=== PATIENT | female | born 1965 | race Caucasian/White ===

== ENCOUNTER 2020-09-18 21:40 | Emergency (ER) | payer OTHER ==
[~2020-09-18] VITALS: Ht 172.7 cm; Wt 55.4 kg
[2020-09-18 22:56] LABS: CLARITY,URINE SLIGHTLY CLOUDY (Clear); COLOR,URINE YELLOW (Yellow); GLUCOSE, URINE NEGATIVE (Neg); KETONES,URINE NEGATIVE (Neg); LEUKOCYTE ESTERASE ,URINE LARGE (Neg); NITRITES, URINE NEGATIVE (Neg); OCCULT BLOOD,URINE LARGE (Neg); PROTEIN,URINE NEGATIVE (Neg); UROBILINOGEN,URINE 0.2 E.U/dL (0.2-1.0)
[2020-09-18 23:02] LABS: UA COLLECTION TYPE CLN CATCH MIDSTREAM
[2020-09-18 23:03] LABS: BACTERIA,URINE FEW /HPF (Neg); SQUAMOUS EPITHELIAL CELL,UR FEW /LPF (FEW); WBC CLUMPS,URINE MODERATE /HPF (NEGATIVE); WBC,URINE 30-50 /HPF (0-4)
[2020-09-18] MEDS ORDERED: NITR100C6 PO (23:19)
[2020-09-18] MEDS ORDERED: PHEN-786 PO (23:19)
[2020-09-18] MEDS ORDERED: phenazopyridine 100mg tablet PO ONE (23:20)
[2020-09-18] MEDS ORDERED: nitrofuran/nitrofuran macrocrysal 100 MG capsule PO ONE (23:20)
[2020-09-18 23:28] VITALS: BP 134/91
== END 2020-09-18 23:29 | disposition home or self-care (01) ==
LOC: ER 21:40
DX: N30.90 Cystitis, unspecified without hematuria (principal); Z79.899 Other long term (current) drug therapy
CPT/HCPCS: 81001; 87077; 87088; 87186; 99283

== ENCOUNTER 2020-09-25 05:19 | Emergency (ER) | payer SELFPAY ==
[~2020-09-25] VITALS: Ht 172.7 cm; Wt 63.6 kg
[~2020-09-25 05:19] MED LIST: NITR100C6 PO; PHEN-786 PO
[2020-09-25] MEDS ORDERED: normal saline 1000ml 1,000 ML IVB ONE (05:30)
[2020-09-25 06:07] LABS: BASOPHILS # (AUTO) 0.1 X10'3 (0-0.2); EOSINOPHILS # (AUTO) 0.1 X10'3 (0-0.9); EOSINOPHILS % (AUTO) 2.6 % (0-6); HEMATOCRIT 40.5 % (35.0-45.0); LYMPHOCYTES # (AUTO) 1.7 X10'3 (1.1-4.8); MEAN CORPUSCULAR HEMOGLOBIN 30.1 PG (27.0-31.0); MEAN CORPUSCULAR HGB CONC 34.6 g/dL (33.0-36.5); MEAN PLATELET VOLUME 7.5 FL (7.4-10.4); MONOCYTES # (AUTO) 0.4 X10'3 (0-0.9); MONOCYTES % (AUTO) 6.9 % (2-12); NEUTROPHILS % (AUTO) 57.5 % (42-75); PLATELET COUNT 240 X10'3 (140-440); RED BLOOD COUNT 4.66 X10'6 (4.20-5.60); RED CELL DISTRIBUTION WIDTH 12.2 % (11.5-14.5); WHITE BLOOD COUNT 5.2 X10'3 (4.5-11.0)
[2020-09-25 06:09] LABS: CLARITY,URINE CLEAR (Clear); COLOR,URINE YELLOW (Yellow); GLUCOSE, URINE NEGATIVE (Neg); KETONES,URINE NEGATIVE (Neg); LEUKOCYTE ESTERASE ,URINE NEGATIVE (Neg); NITRITES, URINE NEGATIVE (Neg); OCCULT BLOOD,URINE NEGATIVE (Neg); PH,URINE 6.5 (4.8-8.0); PROTEIN,URINE NEGATIVE (Neg); UA COLLECTION TYPE CLN CATCH MIDSTREAM; UROBILINOGEN,URINE 0.2 E.U/dL (0.2-1.0)
[2020-09-25 06:13] LABS: URINE HCG NEGATIVE (NEG)
[2020-09-25 06:16] LABS: ALANINE AMINOTRANSFERASE 14 U/L (12-78); ALBUMIN/GLOBULIN RATIO 1.2 (1.1-1.5); ALKALINE PHOSPHATASE 70 IU/L (46-116); AMYLASE 58 U/L (25-115); ANION GAP 10 (8-16); ASPARTATE AMINO TRANSFERASE 14 U/L (10-37); BILIRUBIN,TOTAL 0.4 MG/DL (0.1-1.0); BLOOD UREA NITROGEN 9 MG/DL (7-18); BUN/CREATININE RATIO 11.1 (6.6-38.0); CALCIUM 9.2 MG/DL (8.5-10.1); CHLORIDE 106 MMOL/L (99-107); CREATININE 0.81 MG/DL (0.40-0.90); GLUCOSE 106 MG/DL (70-104); LIPASE 155 U/L (73-393); POTASSIUM 3.8 MMOL/L (3.5-5.1); SODIUM 140 MMOL/L (135-145); TOTAL CARBON DIOXIDE 23.9 MMOL/L (24-32); TOTAL PROTEIN 7.4 G/DL (6.4-8.2); eGFR 73 ML/MIN
--- NOTE | 2020-09-25 07:02 | NUR ---
Pelvic exam performed by Dr. Oakley. Ronel HUDSON at bedside. Diagnostics sent.
[2020-09-25] MEDS ORDERED: PHEN-824 PO (07:45)
[2020-09-25 08:07] VITALS: BP 134/89
== END 2020-09-25 08:10 | disposition home or self-care (01) ==
LOC: ER 05:19
DX: R53.81 Other malaise (principal); R30.0 Dysuria; Z87.440 Personal history of urinary (tract) infections; Z72.89 Other problems related to lifestyle; Z79.899 Other long term (current) drug therapy
CPT/HCPCS: 36415; 80053; 81003; 81025; 82150; 83690; 85025; 87210; 87491; 87591; 96360; 99284; J7030; Q0112; 99283

== ENCOUNTER 2022-10-07 21:18 | Emergency (ER) | payer OTHER ==
[~2022-10-07] VITALS: Ht 172.7 cm; Wt 56.8 kg
[~2022-10-07 21:18] MED LIST changes: +PHEN-824 PO
[2022-10-07 21:44] VITALS: BP 138/92
[2022-10-07 22:48] LABS: CLARITY,URINE CLOUDY (Clear); COLOR,URINE YELLOW (Yellow); GLUCOSE, URINE NEGATIVE (Neg); KETONES,URINE NEGATIVE (Neg); LEUKOCYTE ESTERASE ,URINE MODERATE (Neg); NITRITES, URINE POSITIVE (Neg); OCCULT BLOOD,URINE LARGE (Neg); PROTEIN,URINE 30 mg/dl (Neg); UROBILINOGEN,URINE 0.2 E.U/dL (0.2-1.0)
[2022-10-07 22:50] LABS: UA COLLECTION TYPE CLN CATCH MIDSTREAM
[2022-10-07 23:12] LABS: WBC,URINE 30-50 /HPF (0-4)
[2022-10-07 23:13] LABS: BACTERIA,URINE 2+ /HPF (Neg); MUCUS STRANDS NONE SEEN /LPF (Neg); SQUAMOUS EPITHELIAL CELL,UR FEW /LPF (FEW)
[2022-10-08] MEDS ORDERED: phenazopyridine 100mg tablet PO ONE (00:55)
[2022-10-08] MEDS ORDERED: CEPH-585 PO (00:58)
[2022-10-08] MEDS ORDERED: cephalexin 250mg capsule PO ONE (01:00)
== END 2022-10-08 01:14 | disposition home or self-care (01) ==
LOC: ER 21:18
DX: N39.0 Urinary tract infection, site not specified (principal); Z79.899 Other long term (current) drug therapy
CPT/HCPCS: 81001; 87077; 87088; 87186; 99283

== ENCOUNTER 2024-05-12 10:56 | Emergency (ER) | payer OTHER ==
[~2024-05-12] VITALS: Ht 172.7 cm; Wt 64.8 kg
[2024-05-12 11:06] VITALS: BP 138/97; PULSE 103; RESP 16; TEMP 98; O2SAT 97
[2024-05-12] MEDS ORDERED: NITR100C6 PO ×2 (14:51→16:22)
== END 2024-05-12 16:23 | disposition home or self-care (01) ==
LOC: ER 10:57
DX: L50.0 Allergic urticaria (principal); Z79.899 Other long term (current) drug therapy
CPT/HCPCS: 99283